=== PATIENT | female | born 1965 | race Caucasian/White ===

== ENCOUNTER 2016-11-22 20:18 | Emergency (ER) | payer OTHER ==
[2016-11-23] MEDS ORDERED: ACETAMINOPHEN 325 MG TABLET ONE (00:44)
--- NOTE | 2016-11-23 09:15 | RAD ---
HISTORY: Popping sound from left knee while stepping up onto a chair. Unable to bear weight. Initial encounter. COMPARISON: 12/01/2013 TECHNIQUE: four views of Left knee. FINDINGS: Bones: No fracture or dislocation. Minimal spurring within the patellofemoral and medial compartments is present. Joints: Normal. Soft tissue: Small joint effusion is present. IMPRESSION: Small joint effusion without fracture or dislocation. If there is concern for internal derangement of the knee MRI would be recommended.
== END 2016-11-23 01:03 | disposition home or self-care (01) ==
LOC: ED 20:18
DX: M25.562 Pain in left knee (principal); W22.09XA Striking against other stationary object, initial encounter; Y92.9 Unspecified place or not applicable
CPT/HCPCS: 73564; 99283 ×2; A9270